=== PATIENT | male | born 1940 | race Caucasian/White ===

== ENCOUNTER 2017-12-04 23:02 | Emergency (ER) | payer BC ==
[~2017-12-04] VITALS: Ht 172.7 cm; Wt 83.5 kg
[~2017-12-04 23:02] MED LIST: ACET500; ASPI500; ASPI81CH; ATOR10; ATOR40TA PO; BENAML10/5; CALCIT950; CEPH500 PO; CETI10 PO; CHLO4; CHOL10002 PO; CITRACAL; CLOP75; Cipro500 MG PO; ESCI10; ESOM20; GLUCHON; IBUP200; IBUP400 PO; MELA3; METO50ER PO; MOMENI; MULVITA; NITRSPRAY; OMEP20ER PO; TEMA30; Zofran Odt4 MG PO
[2017-12-04] MEDS ORDERED: IBUP600 PO (23:32)
[2017-12-04] MEDS ORDERED: Prednisone50 MG PO (23:32)
== END 2017-12-05 00:30 | disposition home or self-care (01) ==
LOC: ER 23:02
DX: M53.3 Sacrococcygeal disorders, not elsewhere classified (principal); F32.9 Major depressive disorder, single episode, unspecified; Z88.2 Allergy status to sulfonamides; Z88.8 Allergy status to other drugs, medicaments and biological substances; Z79.82 Long term (current) use of aspirin; Z79.52 Long term (current) use of systemic steroids; Z79.899 Other long term (current) drug therapy
CPT/HCPCS: 96374; 96375; 99283; J1100; J1885

== ENCOUNTER 2020-06-24 09:48 | Day surgery (SDC) | payer BC ==
[~2020-06-24] VITALS: Ht 172.7 cm; Wt 81.8 kg
[~2020-06-24 09:48] MED LIST changes: +Aspir 8181 MG PO; +IBUP600 PO; +METO100ER PO; +NASONEX17 G1; +Prednisone50 MG PO; +REPATHA SU140 MG/1 M SQ; +VITAMIN D31000 UNI1; +ZYRTEC10 M1 PO
--- NOTE | 2020-06-24 11:39 | NUR ---
06/24/20 1139 JALYN URIBE PATIENT'S TO BEDSIDE. ENGAGED IN PRE OP TEACHING.
--- NOTE | 2020-06-24 16:15 | NUR ---
06/24/20 1615 Anastasia Mayberry PT MEDICATED WITH ORAL PAIN MED PER ORDERS FOR 5/10 TOLERABLE PAIN. PT WANTED TO GET STARTED ON ORAL PAIN MEDICAINE BEFORE DISCHARGING HOME.
== END 2020-06-24 16:31 | disposition home or self-care (01) ==
LOC: ORSCSDS 09:48 → NM 09:48 → ORSCSDS 11:00
PROVIDERS: Surgery
PROC: 0JBN0ZZ Excision of Right Lower Leg Subcutaneous Tissue and Fascia, Open Approach (ICD-10-PCS; principal; 2020-06-24 13:00)
PROC: 07BH0ZX Excision of Right Inguinal Lymphatic, Open Approach, Diagnostic (ICD-10-PCS; principal; 2020-06-24 13:00)
PROC: 0JXN0ZZ Transfer Right Lower Leg Subcutaneous Tissue and Fascia, Open Approach (ICD-10-PCS; principal; 2020-06-24 13:00)
DX: C43.71 Malignant melanoma of right lower limb, including hip (principal); D36.0 Benign neoplasm of lymph nodes; I10 Essential (primary) hypertension; I25.10 Atherosclerotic heart disease of native coronary artery without angina pectoris; K21.9 Gastro-esophageal reflux disease without esophagitis; E78.00 Pure hypercholesterolemia, unspecified; Z79.899 Other long term (current) drug therapy
CPT/HCPCS: 78195; A9270; A9520; J0690; J1100; J2250; J2405; J2704; J3010; J7120; Q9968

== ENCOUNTER 2021-12-23 09:54 | Observation (INO) | payer BC ==
[~2021-12-23] VITALS: Ht 172.7 cm; Wt 79.7 kg
[2021-12-23 10:50] LABS: Alanine Aminotransfer (ALT/SGP 23 U/L (12-78); Albumin, Blood 3.6 g/dL (3.4-5.0); Albumin/Globulin Ratio 0.9 (0.8-1.8); Alk Phos 64 U/L (50-136); Anion Gap 9 mmol/L (6-16); Aspartate Aminotrans (AST/SGOT 24 U/L (12-37); Bilirubin, Total 0.5 mg/dL (0.1-1.0); Blood Urea Nitrogen 9 mg/dL (8-24); Bun/Creatinine Ratio 13.2 (12.0-20.0); CO2, Blood 30 mmol/L (21-32); Calcium, Blood 9.4 mg/dL (8.5-10.1); Chloride, Blood 99 mmol/L (98-108); Creatinine, Blood 0.68 mg/dL (0.60-1.20); Globulin, Blood 3.8 g/dL (2.2-4.0); Glomerular Filtration Rate >60 (60-); Glucose, Blood 184 mg/dL (70-99); Potassium, Blood 3.8 mmol/L (3.5-5.5); Sodium, Blood 138 mmol/L (136-145); Total Protein, Blood 7.4 g/dL (6.4-8.2)
[2021-12-23 10:53] LABS: BASOPHILS ABSOLUTE AUTO 0.05 K/mm3 (0.00-0.23); BASOPHILS PERCENT AUTO 1 % (0-2); EOSINOPHILS ABSOLUTE AUTO 0.26 K/mm3 (0.00-0.68); EOSINOPHILS PERCENT AUTO 6 % (0-6); Hematocrit 47.4 % (37.0-53.0); Hemoglobin 15.8 g/dL (13.5-17.5); IMMATURE GRAN ABSOLUTE AUTO 0.01 K/mm3 (0.00-0.10); IMMATURE GRAN PERCENT AUTO 0 % (0-1); LYMPHOCYTES ABSOLUTE AUTO 1.42 K/mm3 (0.84-5.20); LYMPHOCYTES PERCENT AUTO 31 % (21-46); MONOCYTES ABSOLUTE AUTO 0.42 K/mm3 (0.16-1.47); MONOCYTES PERCENT AUTO 9 % (4-13); Mean Corpuscular HGB 32.9 pg (26.0-34.0); Mean Corpuscular HGB Conc 33.3 g/dL (31.5-36.5); Mean Corpuscular Volume 99 fL (80-100); Mean Platelet Volume 10.1 fL (9.1-12.4); NEUTROPHILS ABSOLUTE AUTO 2.45 K/mm3 (1.96-9.15); NEUTROPHILS PERCENT AUTO 53 % (41-73); Platelet Count 167 K/mm3 (150-400); RDW Coefficient Variation 11.9 % (11.7-14.2); RDW Standard Deviation 43.8 fL (35.1-46.3); White Blood Cell Count 4.61 K/mm3 (4.00-11.30)
[2021-12-23] MEDS ORDERED: Bisoprolol Fumar5 MG PO (14:27)
[2021-12-23] MEDS ORDERED: Nitroglycerin1 EAC3 TOP (15:55)
[2021-12-23] MEDS ORDERED: LOSA25 PO (15:55)
[2021-12-23 16:55] LABS: Anti-Xa UFH, PHA Monitoring <0.10 IU/mL; International Normalized Ratio 0.98; Prothrombin Time Results 10.3 Sec (9.7-11.5)
--- NOTE | 2021-12-23 19:43 | NUR ---
END OF SHIFT SUMMARY: PATIENT ARRIVED TO UNIT WITH AT BEDSIDE. PATIENT ALERT AND ORIENTED X4 THROUGHOUT SHIFT. PATIENT REPORTED CHEST PAIN AT A 2/10 FOR THE REST OF THE SHIFT. PATIENT UP WITHOUT INCREASED CHEST PAIN, SHORTNESS OF BREATH OR NUMBNESS/TINGLING. PATIENT CONTINUED TO REPORT THAT HE WAS FEELING "MUCH BETTER THAN THIS MORNING" DR. WANG ROUNDED ON PATIENT TO DISCUSS PLAN OF CARE. PATIENT REPORTED UNDERSTANDING AND AGREEMENT TO PLAN. HEPARIN DRIP STARTED PER ORDERS. PATIENT AWARE THAT HE IS NPO AT MIDNIGHT.
--- NOTE | 2021-12-24 04:13 | NUR ---
SHIFT SUMMARY ADMITTED FOR CHEST PAIN. DNR CODE. PLAN IS FOR ANGIOGRAM IF CHEST PAIN RETURNS OR TROPONIN LABS TREND UP. TROPONIN HAS RISEN FROM 170 TO 193 OF LATEST LAB. HEPARIN DRIP INFUSING, MANAGED BY PHARMACY. TELEMETRY: NSR @ [address] WANG IS CARDIOLOGY CONSULT. NO ETOH WITHDRAWAL S/SX NOTED OR REPORTED OF YET.
[2021-12-24 07:02] LABS: Influenza A, PCR NEGATIVE (NEGATIVE); Influenza B, PCR NEGATIVE (NEGATIVE); Resp Syncytial Virus, PCR NEGATIVE (NEGATIVE); SARS-Cov-2 (COVID-19) PCR, MMC NEGATIVE (NEGATIVE)
[2021-12-24] MEDS ORDERED: METO50ER PO (11:04)
[2021-12-24] MEDS ORDERED: ASMANEX220 M14 INH (11:06)
[2021-12-24] MEDS ORDERED: CLOP75 PO (11:07)
--- NOTE | 2021-12-24 11:49 | NUR ---
DISCHARGE SUMMARY PATIENT DISCHARGED HOME. DISCHARGE PAPERWORK REVIEWED WITH PATIENT AND QUESTIONS ANSWERED. PATIENT IV AND TELE DC'D. NEW MEDICATION PRESCRIPTIONS FAXED TO PREFERRED PHARMACY. PATIENT AND ALL BELONGINGS TAKEN VIA WHEELCHAIR TO PERSONAL CAR AND TAKEN HOME BY FAMILY.
[2022-06-10] MEDS ORDERED: OLME20 PO (09:21)
== END 2021-12-24 13:12 | disposition home or self-care (01) ==
LOC: ER 09:54 → MEDS 09:55 → ER 09:55 → MEDS 09:55
PROVIDERS: Internal Medicine; Nurse Practitioner Acute Care; Physician Assistant; ADMIT Internal Medicine
DX: R07.89 Other chest pain (principal); I10 Essential (primary) hypertension; R00.0 Tachycardia, unspecified; I25.10 Atherosclerotic heart disease of native coronary artery without angina pectoris; E78.5 Hyperlipidemia, unspecified; F32.A Depression, unspecified; F10.20 Alcohol dependence, uncomplicated; Z20.822 Contact with and (suspected) exposure to COVID-19; Z88.2 Allergy status to sulfonamides; Z88.8 Allergy status to other drugs, medicaments and biological substances; Z95.1 Presence of aortocoronary bypass graft; Z95.5 Presence of coronary angioplasty implant and graft; Z66 Do not resuscitate
CPT/HCPCS: 0241U; 36415; 71045; 80053; 83690; 83735; 84484; 85025; 85520; 85610; 93005; 93010; 96374; 96376; 99285-25; A9270; G0378; J1644

== ENCOUNTER 2022-05-20 06:40 | Day surgery (SDC) | payer BC ==
[~2022-05-20] VITALS: Ht 170.2 cm; Wt 79.7 kg
[~2022-05-20 06:40] MED LIST changes: +ASMANEX220 M14 INH; +Bisoprolol Fumar5 MG PO; +CLOP75 PO; +LOSA25 PO; +Nitroglycerin1 EAC3 TOP
[2022-05-20] MEDS ORDERED: DIGOX125 MC1 (07:11)
--- NOTE | 2022-05-20 07:18 | NUR ---
05/20/22 0718 Kina Ybarra CALL LIGHT WITHIN REACH. TETRACAINE IN THE RIGHT EYE AT 0712 PLEDGETT AT 0715
== END 2022-05-20 08:31 | disposition home or self-care (01) ==
LOC: ORSCSDS 06:40
PROVIDERS: Ophthalmology
PROC: 08RJ3JZ Replacement of Right Lens with Synthetic Substitute, Percutaneous Approach (ICD-10-PCS; principal; 2022-05-20 08:00)
DX: H25.13 Age-related nuclear cataract, bilateral (principal); I25.10 Atherosclerotic heart disease of native coronary artery without angina pectoris; G40.909 Epilepsy, unspecified, not intractable, without status epilepticus; I10 Essential (primary) hypertension; Z79.01 Long term (current) use of anticoagulants; Z79.899 Other long term (current) drug therapy
CPT/HCPCS: J2001; J2250; J3010; J3301; J7040; V2632

== ENCOUNTER 2022-12-26 08:28 | Emergency (ER) | payer BC ==
[~2022-12-26] VITALS: Ht 172.7 cm; Wt 77.1 kg
[~2022-12-26 08:28] MED LIST changes: +DIGOX125 MC1; +OLME20 PO
[2022-12-26] MEDS ORDERED: CEPH500 PO (09:02)
== END 2022-12-26 09:18 | disposition home or self-care (01) ==
LOC: ER 08:28
DX: L03.115 Cellulitis of right lower limb (principal); I10 Essential (primary) hypertension; I25.10 Atherosclerotic heart disease of native coronary artery without angina pectoris; Z88.2 Allergy status to sulfonamides; Z88.8 Allergy status to other drugs, medicaments and biological substances; Z79.899 Other long term (current) drug therapy
CPT/HCPCS: 99282

== ENCOUNTER 2023-09-19 17:10 | Emergency (ER) | payer BC ==
[~2023-09-19] VITALS: Ht 172.7 cm; Wt 77.1 kg
[2023-09-19 20:49] LABS: BASOPHILS ABSOLUTE AUTO 0.06 K/mm3 (0.00-0.23); BASOPHILS PERCENT AUTO 1 % (0-2); EOSINOPHILS ABSOLUTE AUTO 0.33 K/mm3 (0.00-0.68); EOSINOPHILS PERCENT AUTO 5 % (0-6); Hematocrit 43.6 % (37.0-53.0); Hemoglobin 14.8 g/dL (13.5-17.5); IMMATURE GRAN ABSOLUTE AUTO 0.01 K/mm3 (0.00-0.10); IMMATURE GRAN PERCENT AUTO 0 % (0-1); LYMPHOCYTES ABSOLUTE AUTO 1.74 K/mm3 (0.84-5.20); LYMPHOCYTES PERCENT AUTO 29 % (21-46); MONOCYTES ABSOLUTE AUTO 0.53 K/mm3 (0.16-1.47); MONOCYTES PERCENT AUTO 9 % (4-13); Mean Corpuscular HGB 32.2 pg (26.0-34.0); Mean Corpuscular HGB Conc 33.9 g/dL (31.5-36.5); Mean Corpuscular Volume 95 fL (80-100); Mean Platelet Volume 10.7 fL (9.1-12.4); NEUTROPHILS ABSOLUTE AUTO 3.39 K/mm3 (1.96-9.15); NEUTROPHILS PERCENT AUTO 56 % (41-73); Platelet Count 159 K/mm3 (150-400); RDW Coefficient Variation 11.8 % (11.7-14.2); RDW Standard Deviation 40.9 fL (35.1-46.3); White Blood Cell Count 6.06 K/mm3 (4.00-11.30)
[2023-09-19 21:31] LABS: Alanine Aminotransfer (ALT/SGP 26 U/L (12-78); Albumin, Blood 3.3 g/dL (3.4-5.0); Albumin/Globulin Ratio 0.9 (0.8-1.8); Alk Phos 50 U/L (50-136); Anion Gap 6 mmol/L (6-16); Aspartate Aminotrans (AST/SGOT 25 U/L (12-37); Bilirubin, Total 0.5 mg/dL (0.1-1.0); Blood Urea Nitrogen 14 mg/dL (8-24); Bun/Creatinine Ratio 19.9 (12.0-20.0); CO2, Blood 26 mmol/L (21-32); Chloride, Blood 109 mmol/L (98-108); Digoxin (Lanoxin) 0.13 ug/mL (0.80-2.00); Globulin, Blood 3.5 g/dL (2.2-4.0); Glomerular Filtration Rate 91 (60-); Glucose, Blood 97 mg/dL (70-99); Sodium, Blood 141 mmol/L (136-145); Total Protein, Blood 6.8 g/dL (6.4-8.2)
[2023-09-19 23:45] VITALS: BP 112/64
== END 2023-09-20 00:01 | disposition short-term general hospital (02) ==
LOC: ER 17:10
PROVIDERS: Emergency Medicine
DX: T18.128A Food in esophagus causing other injury, initial encounter (principal); I10 Essential (primary) hypertension; E78.5 Hyperlipidemia, unspecified; M19.90 Unspecified osteoarthritis, unspecified site; Z88.8 Allergy status to other drugs, medicaments and biological substances; Z88.2 Allergy status to sulfonamides; Z79.899 Other long term (current) drug therapy
CPT/HCPCS: 80053; 80162; 85025; 93005; 93010; 96374; 96375; 99284-25; J1610; J2270; J2405; J7042